=== PATIENT | female | born 2000 | race Two or more races ===

== ENCOUNTER 2020-07-10 20:13 | Emergency (ER) | payer MEDICAID ==
[~2020-07-10] VITALS: Ht 167.6 cm; Wt 99.8 kg
[2020-07-10 20:30] VITALS: BP 143/75
[2020-07-11] MEDS ORDERED: IBUPROFEN 800 MG TAB PO ONE (00:45)
== END 2020-07-11 01:13 | disposition home or self-care (01) ==
LOC: ER 20:18
DX: S06.0X0A Concussion without loss of consciousness, initial encounter (principal); R51.9 Headache, unspecified; W22.8XXA Striking against or struck by other objects, initial encounter; Y93.89 Activity, other specified; Y92.89 Other specified places as the place of occurrence of the external cause; Y99.8 Other external cause status
CPT/HCPCS: 70450; 72125; 81025